=== PATIENT | female | born 1940 | race Caucasian/White ===

== ENCOUNTER 2018-02-11 07:54 | Inpatient (IN) | payer MEDICARE ==
[~2018-02-11] VITALS: Ht 175.3 cm; Wt 80.7 kg
[~2018-02-11 07:54] MED LIST: ATOR10 PO; CALTTAB2 PO; CLOP75 PO; ECOT81TA2 PO; EPIP0.3I IM; GEMF600T PO; GLUCTAB PO; IRON325T; LEVA250T PO; LEVO100T60 PO; LISI10 PO; NIFE1TAB86 PO; OMEP20CA5 PO; STOO100T; VITA100018 OR; WOMETAB2 OR
[2018-02-11 08:07] VITALS: BP 139/61; PULSE 80; RESP 20; TEMP 97.3; O2SAT 96
[2018-02-11] MEDS ORDERED: LISI10TA3 PO (08:38)
[2018-02-11] MEDS ORDERED: OMEP20TA93 PO (08:38)
[2018-02-11] MEDS ORDERED: LEVO100T5 PO (08:38)
[2018-02-11] MEDS ORDERED: BIOT10TA PO (08:38)
[2018-02-11] MEDS ORDERED: MULT-65 PO (08:38)
[2018-02-11] MEDS ORDERED: NIFE60TA58 PO (08:38)
[2018-02-11] MEDS ORDERED: GEMF600T PO (08:38)
[2018-02-11] MEDS ORDERED: METF1000 PO (08:38)
[2018-02-11] MEDS ORDERED: EMPA1TAB PO (08:38)
[2018-02-11] MEDS ORDERED: CALCTAB19 PO (08:38)
[2018-02-11] MEDS ORDERED: COQ-100C5 PO (08:38)
[2018-02-11] MEDS ORDERED: PLAV75TA29 PO (08:38)
[2018-02-11] MEDS ORDERED: VITA1000 PO (08:38)
[2018-02-11] MEDS ORDERED: ACETAMINOPHEN 500 MG CPLT PO ONE (08:45)
--- NOTE | 2018-02-11 09:24 | PD ---
HPI Chief Complaint: Fall Time Seen by Provider: 08:27 Travel History International Travel<30 days: No Contact w/Intl Traveler<30days: No Traveled to known affect area: No History of Present Illness HPI This 77-year-old woman presents to the emergency department complaining of pain in her left foot in both knees after a fall. She reports that she was making a large step up from part of her house to another when she got tangled up on her feet and fell. She fell on her knees and her feet. Complains of pain in her lower extremity's only. Did not hit her head. Otherwise had been feeling generally well and healthy. Denies syncope or other symptoms. Patient able to bear weight but with some difficulty. History Past Medical History Narrative Medical Hypothyroidism Fuchs corneal dystrophy Hypertension Dyslipidemia Diabetes History of breast CA Chronic back pain Osteoporosis Tetanus Vaccination: > 5 Years Influenza Vaccination: Yes Menopausal: Yes Social History Alcohol Use: No Tobacco Use: No Allergies-Medications (Allergen,Severity, Reaction): Coded Allergies: Iodinated Contrast- Oral and IV Dye (Verified Allergy, Severe, RASH/ SWELLING, 02/11/18) Sulfa (Sulfonamide Antibiotics) (Verified Allergy, Severe, SORES IN MOUTH , 02/11/18) bee venom protein (honey bee) (Verified Allergy, Severe, Anaphylaxis, 02/11) codeine (Verified Allergy, Severe, CHEST PAIN/MOUTH TINGLING, 02/11/18) Uncoded Allergies: FLEA BITES (Adverse Reaction, Intermediate, CELLLITITS, 02/11/18) SPIDER BITES (Adverse Reaction, Intermediate, CELLULITIS, 02/11/18) SURGICAL TAPE (Adverse Reaction, Intermediate, BLISTERS, 02/11/18) Reported Meds & Prescriptions Reported Meds & Active Scripts Active Reported Biotin 10 Mg Tab 10 Mg PO DAILY Coq-10 Tr (Coenzyme Q10 (Ubidecarenone)) 100 Mg Cap 100 Mg PO DAILY Multi-Vitamin Daily (Multiple Vitamin) 1 Tab Tab 1 Tab PO DAILY Jardiance (Empagliflozin) 10 Mg Tab 10 Mg PO DAILY Gemfibrozil 600 Mg Tab 600 Mg PO BIDAC Take 30 minutes prior to breakfast and dinner. Omeprazole 20 Mg Tab 20 Mg PO DAILY Calcium 600+D 200 (Calcium Carbonate-Vitamin D) 600-200 Mg-Unit Tab 1 Tab PO BID Vitamin D-1000 (Cholecalciferol) 1,000 Unit Tab 1,000 Units PO DAILY Levothyroxine (Levothyroxine Sodium) 100 Mcg Tab 100 Mcg PO DAILY Plavix (Clopidogrel Bisulfate) 75 Mg Tab 75 Mg PO DAILY Lisinopril 10 Mg Tab 10 Mg PO DAILY Nifedipine ER 24 HR (Nifedipine) 60 Mg Tab 60 Mg PO BID Metformin (Metformin HCl) 1,000 Mg Tab 1,000 Mg PO BIDPC Review of Systems Except as stated in HPI: all other systems reviewed are Neg Physical Exam Narrative GENERAL: Well-appearing 77-year-old woman, no acute distress. SKIN: Focused skin assessment warm/dry. HEAD: Atraumatic. Normocephalic. EYES: Pupils equal and round. No scleral icterus. No injection or drainage. ENT: No nasal bleeding or discharge. Mucous membranes pink and moist. NECK: Trachea midline. No JVD. CARDIOVASCULAR: Regular rate and rhythm. No murmur appreciated. RESPIRATORY: No accessory muscle use. Clear to auscultation. Breath sounds equal bilaterally. GASTROINTESTINAL: Abdomen soft, non-tender, nondistended. Hepatic and splenic margins not palpable. MUSCULOSKELETAL: No obvious deformity. No significant ecchymosis or bruising. A little bit of ecchymosis on the anterior left knee. Is a little bit of swelling on the left foot medially. There is no tenderness about the left medial lateral malleolus or in the ankle. No pain on the left calf. Examination of the left knee reveals no obvious effusion. There is some tenderness anteriorly on the knee. Full range of motion. Examination of the right knee reveals no external signs of injury. Minimal tenderness diffusely. Full range of motion. NEUROLOGICAL: Awake and alert. No obvious cranial nerve deficits. Motor grossly within normal limits. Normal speech. PSYCHIATRIC: Appropriate mood and affect; insight and judgment normal. Data Data Last Documented VS Vital Signs Date Time Temp Pulse Resp B/P (MAP) Pulse Ox O2 Delivery O2 Flow Rate FiO2 02/11/18 10:05 93 Nasal Cannula 2.00 02/11/18 10:04 73 18 133/60 (84) 02/11/18 08:07 97.3 Orders Orders Acetaminophen (Tylenol) (02/11/18 08:45) Knee, Complete (4vws) (02/11/18 ) Foot, Complete ([id number]) (02/11/18 ) Knee, Complete (4vws) (02/11/18 ) Complete Blood Count With Diff (02/11/18 12:31) Basic Metabolic Panel (Bmp) (02/11/18 12:31) Admit Order (Ed Use Only) (02/11/18 ) [facility] Medical Decision Making Medical Screen Exam Complete: Yes Emergency Medical Condition: Yes Interpretation(s) Left foot x-ray: Fracture the base of the first metatarsal Bilateral knee x-rays: Negative for fracture Differential Diagnosis Knee x-ray fracture, contusion, strain or sprain, other Narrative Course Medical decision making 77-year-old woman presents emergency department complaint pain in her left foot , both knees, after fall. Looks well. Will check imaging. Possible foot fracture. Doubt knee injury. Physician Communication Physician Communication Spoke with Dr. Rodriguez, will likely need to pin the foot. Recommends admission. Spoke with Dr. Romero, will admit patient. Diagnosis Primary Impression: Metatarsal fracture Admitting Information Admitting Physician Requests: Admit Jared Connelly MD February 11, 2018 09:24
--- NOTE | 2018-02-11 09:35 | RADRPT ---
EXAM DATE: 02/11/2018 9:31 AM EDT AGE/SEX: 77 years / Female INDICATIONS: Right knee pain on medial and lateral side after fall. CLINICAL DATA: This is the patient's initial encounter. Patient reports that signs and symptoms have been present for 1 day and indicates a pain score of 5/10. MEDICAL/SURGICAL HISTORY: None. None. COMPARISON: No prior [place] exams available for comparison. FINDINGS: Bony structures are intact and in normal alignment. No fracture or effusion. There is osteopenia. Mil d osteoarthritis. Soft tissues are unremarkable. No radiopaque foreign bodies seen. CONCLUSION: Mild osteoarthritis without fracture. Electronically signed by: Diego Steel MD 02/11/2018 9:33 AM EDT
--- NOTE | 2018-02-11 09:39 | RADRPT ---
EXAM DATE: 02/11/2018 9:34 AM EDT AGE/SEX: 77 years / Female INDICATIONS: Left foot pain on medial side after fall. CLINICAL DATA: This is the patient's initial encounter. Patient reports that signs and symptoms have been present for 1 day and indicates a pain score of 10/10. MEDICAL/SURGICAL HISTORY: None. None. COMPARISON: No prior [place] exams available for comparison. FINDINGS: Views left foot are obtained. There is a minimally displaced fracture through the base of the first m etatarsal was extended to the proximal shaft. There are mild scattered degenerative changes. There is osteopenia. Large plantar calcaneal spur.. Soft tissues are unremarkable. No radiopaque foreign jonathan dies seen. CONCLUSION: Fracture at the base of the first metatarsal. Electronically signed by: Diego Steel MD 02/11/2018 9:38 AM EDT
[2018-02-11 10:04] VITALS: BP 133/60; PULSE 73; RESP 18; O2SAT 88
[2018-02-11 10:05] VITALS: O2SAT 93
--- NOTE | 2018-02-11 10:30 | RADRPT ---
EXAM DATE: 02/11/2018 9:33 AM EDT AGE/SEX: 77 years / Female INDICATIONS: Left knee pain on medial and lateral side after fall. CLINICAL DATA: This is the patient's initial encounter. Patient reports that signs and symptoms have been present for 1 day and indicates a pain score of 10/10. MEDICAL/SURGICAL HISTORY: None. None. COMPARISON: No prior [place] exams available for comparison. FINDINGS: 4 views of the left knee demonstrate no fracture or dislocation. Mineralization appears mildly decrea sed. No joint effusion is visualized. A fabella is present. Small osteophytes are present on the tibi al spines but otherwise no significant arthropathy is present. No soft tissue abnormality or radiopaq ue foreign body is identified. CONCLUSION: No acute left knee abnormality is identified. Electronically signed by: Ethan Brown MD 02/11/2018 10:29 AM EDT
[2018-02-11] MEDS ORDERED: SODIUM CHLOR 0.9% 1000 ML INJ 1,000 ML IV SCH (13:09)
[2018-02-11] MEDS ORDERED: NALOXONE HCL 0.4 MG/ML AMP IV PUSH PRN (13:15)
[2018-02-11] MEDS ORDERED: MAGNESIUM HYDROXIDE SUSP 30 ML CUP PO PRN (13:15)
[2018-02-11] MEDS ORDERED: SODIUM CHLORIDE 0.9% FLUSH 10 ML FLUSH IV FLUSH PRN (13:15)
[2018-02-11] MEDS ORDERED: MORPHINE SULFATE 4 MG/ML INJ IV PUSH PRN (13:15)
[2018-02-11] MEDS ORDERED: BISACODYL 10 MG SUPP RECTAL PRN (13:15)
[2018-02-11 13:18] LABS: AUTOMATED NEUTROPHIL # 5.5 TH/MM3 (1.8-7.7); BASOPHIL # 0.1 TH/MM3 (0-0.2); BASOPHIL % 0.7 % (0.0-2.0); EOSINOPHIL # 0.2 TH/MM3 (0-0.4); HEMATOCRIT 42.4 % (35.0-46.0); LYMPHOCYTE # 1.3 TH/MM3 (1.0-4.8); MEAN CELL VOLUME 82.4 FL (80.0-100.0); MEAN CORPUSCULAR HEMOGLOBIN 27.1 PG (27.0-34.0); MEAN CORPUSCULAR HGB CONC 32.9 % (32.0-36.0); NEUT % 68.3 % (16.0-70.0); PLATELET COUNT 212 TH/MM3 (150-450); RED BLOOD COUNT 5.15 MIL/MM3 (4.00-5.30); WHITE BLOOD COUNT 8.1 TH/MM3 (4.0-11.0)
--- NOTE | 2018-02-11 13:18 | HHI.HP ---
HPI Service [facility] Hospitalists Primary Care Physician Marcel Barrientos MD Admission Diagnosis Metatarsal fracture Chief Complaint: fall, foot pain Travel History International Travel<30 Days: No Contact w/Intl Traveler <30 Da: No Traveled to Known Affected Are: No History of Present Illness This is 77 rolled female patient with past medical history which includes ductal carcinoma of the breast, arthritis, thyroid cancer, basal cell carcinoma of the skin from the nose, hypertension, dyslipidemia, diabetes mellitus, chronic back pain, osteoporosis, hypothyroidism,Fuchs corneal dystrophy. Patient presents emergency department today with complains of pain in her left foot in both knees after a fall. She reports that she was making a large step up from part of her house to another when she got tangled up on her feet and fell. She fell on her knees and her feet. Complains of pain in her lower extremity's only. Denies head trauma cannot, loss of consciousness, syncope, chest pain, shortness of breath, fevers, chills, nausea, vomiting. Review of Systems Constitutional: DENIES: Fatigue, Fever, Chills Eyes: DENIES: Blurred vision, Diplopia, Vision loss Respiratory: DENIES: Cough, Sputum production, Shortness of breath Cardiovascular: DENIES: Chest pain, Palpitations, Dyspnea on Exertion Gastrointestinal: DENIES: Abdominal pain, Constipation, Diarrhea, Nausea, Vomiting Musculoskeletal: COMPLAINS OF: Joint pain (left foot), Joint Swelling (left foot) Neurologic: DENIES: Headache, Localized weakness, Speech Problems Psychiatric: DENIES: Anxiety, Confusion, Depression Past Family Social History Past Medical History Arthritis Thyroid cancer BCC skin cancer from nose Right breast cancer Hypertension Dyslipidemia Diabetes Chronic back pain Osteoporosis Hypothyroidism Fuchs corneal dystrophy GERD Past Surgical History Bilateral Inguinal herniorrhaphy Appendectomy Total hysterectomy Bilateral cataract surgery Thyroidectomy Right breast lumpectomy BCC removal from nose Pilonidal cyst removal Left knee surgery right hip surgery Reported Medications Biotin 10 Mg Tab 10 Mg PO DAILY Coq-10 Tr (Coenzyme Q10 (Ubidecarenone)) 100 Mg Cap 100 Mg PO DAILY Multi-Vitamin Daily (Multiple Vitamin) 1 Tab Tab 1 Tab PO DAILY Jardiance (Empagliflozin) 10 Mg Tab 10 Mg PO DAILY Gemfibrozil 600 Mg Tab 300 Mg PO DAILY Take 30 minutes prior to breakfast and dinner. Omeprazole 20 Mg Tab 20 Mg PO DAILY Calcium 600+D 200 (Calcium Carbonate-Vitamin D) 600-200 Mg-Unit Tab 1 Tab PO BID Vitamin D-1000 (Cholecalciferol) 1,000 Unit Tab 1,000 Units PO DAILY Levothyroxine (Levothyroxine Sodium) 100 Mcg Tab 100 Mcg PO DAILY Plavix (Clopidogrel Bisulfate) 75 Mg Tab 75 Mg PO DAILY Lisinopril 10 Mg Tab 10 Mg PO DAILY Nifedipine ER 24 HR (Nifedipine) 60 Mg Tab 60 Mg PO BID Metformin (Metformin HCl) 1,000 Mg Tab 1,000 Mg PO BIDPC Allergies: Coded Allergies: Iodinated Contrast- Oral and IV Dye (Verified Allergy, Severe, RASH/ SWELLING, 02/11/18) Sulfa (Sulfonamide Antibiotics) (Verified Allergy, Severe, SORES IN MOUTH , 02/11/18) bee venom protein (honey bee) (Verified Allergy, Severe, Anaphylaxis, 02/11) codeine (Verified Allergy, Severe, CHEST PAIN/MOUTH TINGLING, 02/11/18) Uncoded Allergies: FLEA BITES (Adverse Reaction, Intermediate, CELLLITITS, 02/11/18) SPIDER BITES (Adverse Reaction, Intermediate, CELLULITIS, 02/11/18) SURGICAL TAPE (Adverse Reaction, Intermediate, BLISTERS, 02/11/18) Family History Noncontributory Social History Hx of tobacco use, smoked 1ppf x 20 years, quit 25+ years ago Denies any alcohol or illicit drug use Physical Exam Vital Signs Vital Signs Date Time Temp Pulse Resp B/P (MAP) Pulse Ox O2 Delivery O2 Flow Rate FiO2 02/11/18 10:05 93 Nasal Cannula 2.00 02/11/18 10:04 73 18 133/60 (84) 88 Room Air 02/11/18 08:26 77 18 95 Room Air 02/11/18 08:07 97.3 80 20 139/61 (87) 96 Physical Exam GENERAL: This is a well-nourished, well-developed patient, in no apparent distress. SKIN: edema and ecchymosis started on the left foot HEAD: Atraumatic. Normocephalic. No temporal or scalp tenderness. EYES: Extraocular motions intact. No scleral icterus. No injection or drainage. CARDIOVASCULAR: Regular rate and rhythm RESPIRATORY: Clear to auscultation. Breath sounds equal bilaterally. GASTROINTESTINAL: Abdomen soft, non-tender, nondistended. No hepato-splenomegaly , or palpable masses. No guarding. MUSCULOSKELETAL: Extremities without clubbing, cyanosis, or edema. No joint tenderness, effusion, or edema noted. No calf tenderness. Negative Homans sign bilaterally. NEUROLOGICAL: Awake and alert. No focal deficits noted. Motor and sensory grossly within normal limits. Five out of 5 muscle strength in all muscle groups. Normal speech. Laboratory Laboratory Tests Test 02/11/18 12:54 Imaging Last Impressions Knee X-Ray 02/11/18 0000 Signed Impressions: CONCLUSION: Mild osteoarthritis without fracture. Foot X-Ray 02/11/18 0000 Signed Impressions: CONCLUSION: Fracture at the base of the first metatarsal. Caprini VTE Risk Assessment Caprini VTE Risk Assessment: Mod/High Risk (score >= 2) Caprini Risk Assessment Model Point Value = 1 Point Value = 2 Point Value = 3 Point Value = 5 Age 41-60 Minor surgery BMI > 25 kg/m2 Swollen legs Varicose veins or History of unexplained or recurrent spontaneous Oral contraceptives or hormone replacement Sepsis (< 1 month) Serious lung disease, including pneumonia (< 1 month) Abnormal pulmonary function Acute myocardial infarction Congestive heart failure (< 1 month) History of inflammatory bowel disease Medical patient at bed rest Age 61-74 Arthroscopic surgery Major open surgery (> 45 min) Laparoscopic surgery (> 45 min) Malignancy Confined to bed (> 72 hours) Immobilizing plaster cast Central venous access Age >= 75 History of VTE Family history of VTE Factor V Leiden Prothrombin [id number] Lupus anticoagulant Anticardiolipin antibodies Elevated serum homocysteine Heparin-induced thrombocytopenia Other congenital or acquired thrombophilia Stroke (< 1 month) Elective arthroplasty Hip, pelvis, or leg fracture Acute spinal cord injury (< 1 month) Prophylaxis Regimen Total Risk Factor Score Risk Level Prophylaxis Regimen 0-1 Low Early ambulation 2 Moderate Order ONE of the following: *Sequential Compression Device (SCD) *Heparin 5000 units SQ BID 3-4 Higher Order ONE of the following medications: *Heparin 5000 units SQ TID *Enoxaparin/Lovenox 40 mg SQ daily (WT < 150 kg, CrCl > 30 mL/min) *Enoxaparin/Lovenox 30 mg SQ daily (WT < 150 kg, CrCl > 10-29 mL/min) *Enoxaparin/Lovenox 30 mg SQ BID (WT < 150 kg, CrCl > 30 mL/min) AND/OR *Sequential Compression Device (SCD) 5 or more Highest Order ONE of the following medications: *Heparin 5000 units SQ TID (Preferred with Epidurals) *Enoxaparin/Lovenox 40 mg SQ daily (WT < 150 kg, CrCl > 30 mL/min) *Enoxaparin/Lovenox 30 mg SQ daily (WT < 150 kg, CrCl > 10-29 mL/min) *Enoxaparin/Lovenox 30 mg SQ BID (WT < 150 kg, CrCl > 30 mL/min) AND *Sequential Compression Device (SCD) Assessment and Plan Problem List: (1) Fractured metatarsal bone ICD Codes: S92.309A - Fracture of unspecified metatarsal bone(s), unspecified foot, initial encounter for closed fracture Plan: Fractured metatarsal bone mechanical fall X ray left foot reveals: Fracture at the base of the first metatarsal Patient known to Dr. Rodriguez Podiatry consulted, recommending plan for OR for ORIF left 1st metatarsal non weight bearing left lower extremity CVA Continue patient's home Plavix in AM DM Hold metformin while in hospital Accu checks ACHS with SSI coverage HTN Continue patient's home Nifedipine 60 mg PO BID, Losartan 25 mg PO daily Hypothyroidism Continue patient's home Levothyroxine 100 mcg daily Hyperlipidemia Continue patient's home Gemfibrozil 300 mg PO daily DVT prophylaxis with SCDs (2) CVA (cerebral vascular accident) ICD Codes: I63.9 - CVA (cerebral vascular accident) Status: Acute (3) DM (diabetes mellitus) ICD Codes: E11.9 - DM (diabetes mellitus) Status: Acute (4) HTN (hypertension), benign ICD Codes: I10 - HTN (hypertension), benign Status: Acute (5) HLD (hyperlipidemia) ICD Codes: E78.5 - HLD (hyperlipidemia) Status: Acute Isela Lei February 11, 2018 13:18
[2018-02-11 13:28] LABS: BICARBONATE 25.3 MEQ/L (21.0-32.0); CALCIUM 8.6 MG/DL (8.5-10.1); CREATININE 0.7 MG/DL (0.50-1.00)
--- NOTE | 2018-02-11 14:47 | PD.CONS ---
History of Present Illness Service Podiatry Consult Requested By Reason for Consult Left 1st metatarsal fracture Primary Care Physician Marcel Barrientos MD Diagnoses: History of Present Illness Patient sees me in office regularly. She presents emergency department today with complains of pain in her left foot after a fall. She reports that she was making a large step up from part of her house to another when she got tangled up on her feet and fell. She fell on her knees and her feet. Complains of pain in her lower extremities only with no loss of consciousness. Appears to be isolated In my office, she reported her last A1c 4 months ago as 6.3 Past Family Social History Allergies: Coded Allergies: Iodinated Contrast- Oral and IV Dye (Verified Allergy, Severe, RASH/ SWELLING, 02/11/18) Sulfa (Sulfonamide Antibiotics) (Verified Allergy, Severe, SORES IN MOUTH , 02/11/18) bee venom protein (honey bee) (Verified Allergy, Severe, Anaphylaxis, 02/11) codeine (Verified Allergy, Severe, CHEST PAIN/MOUTH TINGLING, 02/11/18) Uncoded Allergies: FLEA BITES (Adverse Reaction, Intermediate, CELLLITITS, 02/11/18) SPIDER BITES (Adverse Reaction, Intermediate, CELLULITIS, 02/11/18) SURGICAL TAPE (Adverse Reaction, Intermediate, BLISTERS, 02/11/18) Past Medical History Arthritis Thyroid cancer BCC skin cancer from nose Right breast cancer Hypertension Dyslipidemia Diabetes Chronic back pain Osteoporosis Hypothyroidism Fuchs corneal dystrophy Past Surgical History Bilateral Inguinal herniorrhaphy Appendectomy Total hysterectomy Bilateral cataract surgery Thyroidectomy Right breast lumpectomy BCC removal from nose Pilonidal cyst removal Active Ordered Medications Current Medications Medications (Trade) Dose Ordered Sig/Rocio Route Start Time Stop Time Status Last Admin Sodium Chloride 1,000 ml @ 75 mls/hr [id number] IV 02/11/18 13:09 02/12/18 02:28 02/11/18 13:40 (NS Flush) 2 ml UNSCH PRN IV FLUSH 02/11/18 13:15 (NS Flush) 2 ml BID IV FLUSH 02/11/18 21:00 (Tylenol) 650 mg Q4H PRN PO 02/11/18 13:15 (Narcan Inj) 0.4 mg UNSCH PRN IV PUSH 02/11/18 13:15 (Delisa-Colace) 1 tab BID PO 02/11/18 21:00 (Milk Of Magnesia Liq) 30 ml Q12H PRN PO 02/11/18 13:15 (Dulcolax Supp) 10 mg DAILY PRN RECTAL 02/11/18 13:15 (Morphine Inj) 2 mg Q4HR PRN IV PUSH 02/11/18 13:15 (Plavix) 75 mg DAILY PO 02/12/18 09:00 (Synthroid) 100 mcg DAILY@0600 PO 02/12/18 06:00 (Prinivil) 10 mg DAILY PO 02/12/18 09:00 (Procardia Xl) 60 mg BID PO 02/11/18 21:00 (Jean 5-325 Mg) 1 tab Q4H PRN PO 02/11/18 14:30 (Oscal-D 250-125) 500 mg BID PO 02/12/18 09:00 (Protonix) 20 mg DAILY PO 02/12/18 09:00 Family History Noncontributory Pt has three children Social History Hx of tobacco use, smoked 1ppf x 20 years, quit 25+ years ago Denies any alcohol or illicit drug use Physical Exam Vital Signs Vital Signs Date Time Temp Pulse Resp B/P (MAP) Pulse Ox O2 Delivery O2 Flow Rate FiO2 02/11/18 10:05 93 Nasal Cannula 2.00 02/11/18 10:04 73 18 133/60 (84) 88 Room Air 02/11/18 08:26 77 18 95 Room Air 02/11/18 08:07 97.3 80 20 139/61 (87) 96 Physical Exam Left foot with mild edema. Pain medially. Neurovascularly intact. Laboratory Laboratory Tests Test 02/11/18 12:54 White Blood Count 8.1 Red Blood Count 5.15 Hemoglobin 14.0 Hematocrit 42.4 Mean Corpuscular Volume 82.4 Mean Corpuscular Hemoglobin 27.1 Mean Corpuscular Hemoglobin Concent 32.9 Red Cell Distribution Width 15.0 Platelet Count 212 Mean Platelet Volume 9.0 Neutrophils (%) (Auto) 68.3 Lymphocytes (%) (Auto) 16.0 Monocytes (%) (Auto) 12.0 Eosinophils (%) (Auto) 3.0 Basophils (%) (Auto) 0.7 Neutrophils # (Auto) 5.5 Lymphocytes # (Auto) 1.3 Monocytes # (Auto) 1.0 Eosinophils # (Auto) 0.2 Basophils # (Auto) 0.1 CBC Comment DIFF FINAL Differential Comment Blood Urea Nitrogen 13 Creatinine 0.70 Random Glucose 130 Calcium Level 8.6 Sodium Level 142 Potassium Level 3.7 Chloride Level 108 Carbon Dioxide Level 25.3 Anion Gap 9 Estimat Glomerular Filtration Rate 81 Result Diagram: 02/11/18 1254 02/11/18 1254 Imaging Last 72 hours Impressions Knee X-Ray 02/11/18 0000 Signed Impressions: CONCLUSION: Mild osteoarthritis without fracture. Knee X-Ray 02/11/18 0000 Signed Impressions: CONCLUSION: No acute left knee abnormality is identified. Foot X-Ray 02/11/18 0000 Signed Impressions: CONCLUSION: Fracture at the base of the first metatarsal. Assessment and Plan Assessment and Plan Left first metatarsal fracture To OR for ORIF left 1st metatarsal nonweightbearing left lower extremity NPO Tono Rodriguez DPM February 11, 2018 14:47
[2018-02-11] MEDS ORDERED: LOSA25TA PO (15:27)
[2018-02-11 16:00] VITALS: BP 139/71; PULSE 73; RESP 18; TEMP 97.8; O2SAT 94
[2018-02-11 19:05] VITALS: BP 163/71; PULSE 71; RESP 18; TEMP 98; O2SAT 98
[2018-02-11] MEDS ORDERED: SODIUM CHLORID 0.9% 500 ML IV PRN (20:00)
[2018-02-11] MEDS ORDERED: METOPROLOL TARTRATE 25 MG TAB PO PRN (20:00)
[2018-02-11] MEDS ORDERED: POVIDONE IODINE 5% (ANTISEPSIS KIT) 4 APPLICATIONS EACH NARE PRN (20:00)
[2018-02-11] MEDS ORDERED: LACTATED RINGER'S 1000 ML IV PRN (20:00)
[2018-02-11] MEDS ORDERED: INSULIN HUMAN REGULAR 1,000 UNITS/10 ML VIAL SQ PRN (20:00)
[2018-02-11] MEDS ORDERED: CHLORHEXIDINE GLUCONATE 2 % 1 PACK (2 CLOTHS) TOPICAL PRN (20:00)
[2018-02-11] MEDS ORDERED: NON-FORMULARY DRUG (Calcium Carbonate-Vitamin D (Calcium 600+D 200) 1 TAB) PO SCH (21:00)
[2018-02-11] MEDS ORDERED: fentaNYL CITRATE 250 MCG/5 ML AMP ONE (21:02)
[2018-02-11] MEDS ORDERED: ACETAMINOPHEN 1000 MG/100 ML 0 ML IV ONE (21:02)
[2018-02-11] MEDS: DOCUSATE SODIUM 50 MG/SENNA 8.6 MG TAB PO SCH (21:04)
[2018-02-11] MEDS: SODIUM CHLORIDE 0.9% FLUSH 10 ML FLUSH IV FLUSH SCH (21:04)
[2018-02-11] MEDS: NIFEdipine 60 MG SUSTAINED RELEASE TAB PO SCH (21:05)
--- NOTE | 2018-02-11 21:43 | PD.POD ---
Past Med/Surg/Social History Past Medical History Endocrine: REPORTS HX OF: Diabetes mellitus (type 2), Hypothyroidism Cardiovascular: REPORTS HX OF: Hyperlipidemia, Hypertension Past Surgical History HEENT: REPORTS HX OF: Cataract extraction (bilateral) Endocrine: REPORTS HX OF: Thyroid surgery Gastrointestinal: REPORTS HX OF: Appendectomy, Hernia repair (2) Gynecologic: REPORTS HX OF: Hysterectomy Musculoskeletal: REPORTS HX OF: Joint replacement, Other musculoskeletal srg ( left foot, left knee, ) Neurologic: REPORTS HX OF: Spinal surgery Breast: REPORTS HX OF: Lumpectomy (right ) Social History Smoking Status: Former Smoker Objective Vital Signs Vital Signs Date Time Temp Pulse Resp B/P (MAP) Pulse Ox O2 Delivery O2 Flow Rate FiO2 02/11/18 19:05 98.0 71 18 163/71 (101) 98 02/11/18 16:00 97.8 73 18 139/71 (93) 94 02/11/18 14:55 02/11/18 10:05 93 Nasal Cannula 2.00 02/11/18 10:04 73 18 133/60 (84) 88 Room Air 02/11/18 08:26 77 18 95 Room Air 02/11/18 08:07 97.3 80 20 139/61 (87) 96 Coded Allergies: Iodinated Contrast- Oral and IV Dye (Verified Allergy, Severe, RASH/ SWELLING, 02/11/18) Sulfa (Sulfonamide Antibiotics) (Verified Allergy, Severe, SORES IN MOUTH , 02/11/18) bee venom protein (honey bee) (Verified Allergy, Severe, Anaphylaxis, 02/11) codeine (Verified Allergy, Severe, CHEST PAIN/MOUTH TINGLING, 02/11/18) Uncoded Allergies: FLEA BITES (Adverse Reaction, Intermediate, CELLLITITS, 02/11/18) SPIDER BITES (Adverse Reaction, Intermediate, CELLULITIS, 02/11/18) SURGICAL TAPE (Adverse Reaction, Intermediate, BLISTERS, 02/11/18) Other Results Last 72 hours Impressions Knee X-Ray 02/11/18 0000 Signed Impressions: CONCLUSION: Mild osteoarthritis without fracture. Knee X-Ray 02/11/18 0000 Signed Impressions: CONCLUSION: No acute left knee abnormality is identified. Foot X-Ray 02/11/18 0000 Signed Impressions: CONCLUSION: Fracture at the base of the first metatarsal. Assessment & Plan A/P Left first metatarsal fracture, displaced Emergency came through and delayed OR. Patient made NPO after 8 a.m. tomorrow for surgery at 4 pm Tono Rodriguez DPM February 11, 2018 21:43
[2018-02-11] MEDS: ACETAMINOPHEN 325 MG TAB PO PRN (22:54)
[2018-02-11 22:57] VITALS: BP 148/66; PULSE 72; RESP 17; TEMP 98; O2SAT 93
[2018-02-12 03:16] VITALS: BP 142/66; PULSE 73; RESP 17; TEMP 97.9; O2SAT 93
[2018-02-12] MEDS: LEVOTHYROXINE SODIUM 100 MCG TAB PO SCH (05:45)
[2018-02-12] MEDS: ACETAMINOPHEN/HYDROcodone 325 MG/5 MG TAB PO PRN ×2 (06:41→20:54)
[2018-02-12 08:00] VITALS: BP 149/65; PULSE 71; RESP 16; TEMP 97.5; O2SAT 94
[2018-02-12 08:08] LABS: AUTOMATED NEUTROPHIL # 4.3 TH/MM3 (1.8-7.7); BASOPHIL # 0.1 TH/MM3 (0-0.2); EOSINOPHIL # 0.3 TH/MM3 (0-0.4); EOSINOPHIL % 4.8 % (0.0-4.0); HEMATOCRIT 44.8 % (35.0-46.0); HEMOGLOBIN 14.7 GM/DL (11.6-15.3); LYMPH % 20.8 % (9.0-44.0); LYMPHOCYTE # 1.5 TH/MM3 (1.0-4.8); MEAN CELL VOLUME 83.2 FL (80.0-100.0); MEAN CORPUSCULAR HEMOGLOBIN 27.3 PG (27.0-34.0); MEAN CORPUSCULAR HGB CONC 32.8 % (32.0-36.0); MEAN PLATELET VOLUME 9.1 FL (7.0-11.0); MONO % 11.2 % (0.0-8.0); MONOCYTE # 0.8 TH/MM3 (0-0.9); NEUT % 62.2 % (16.0-70.0); PLATELET COUNT 204 TH/MM3 (150-450); RED BLOOD COUNT 5.38 MIL/MM3 (4.00-5.30)
[2018-02-12 08:33] LABS: BICARBONATE 25.8 MEQ/L (21.0-32.0); CALCIUM 8.6 MG/DL (8.5-10.1); CREATININE 0.53 MG/DL (0.50-1.00)
[2018-02-12] MEDS: GEMFIBROZIL 600 MG TAB PO SCH (09:00)
[2018-02-12] MEDS: PANTOPRAZOLE SOD 20 MG DELAYED RELEASE TAB PO SCH (09:00)
[2018-02-12] MEDS ORDERED: NON-FORMULARY DRUG (Omeprazole 20 MG) PO SCH (09:00)
[2018-02-12] MEDS: DOCUSATE SODIUM 50 MG/SENNA 8.6 MG TAB PO SCH ×2 (09:00→20:53)
[2018-02-12] MEDS ORDERED: LISINOPRIL 10 MG TAB PO SCH (09:00)
[2018-02-12] MEDS: LOSARTAN 25 MG TAB PO SCH (09:00)
[2018-02-12] MEDS: NIFEdipine 60 MG SUSTAINED RELEASE TAB PO SCH ×2 (09:00→20:54)
[2018-02-12] MEDS: SODIUM CHLORIDE 0.9% FLUSH 10 ML FLUSH IV FLUSH SCH ×2 (09:00→20:54)
[2018-02-12] MEDS ORDERED: CLOPIDOGREL 75 MG TAB PO SCH (09:00)
[2018-02-12] MEDS: CALCIUM/VITAMIN D 250 MG/125 U TAB PO SCH ×2 (09:00→20:54)
[2018-02-12 10:11] VITALS: O2SAT 93
--- NOTE | 2018-02-12 10:55 | HHI.PR ---
Subjective Remarks Pt without any new complaints Pain is currently controlled Pt planned for surgical intervention later this afternoon Objective Vitals Vital Signs Date Time Temp Pulse Resp B/P (MAP) Pulse Ox O2 Delivery O2 Flow Rate FiO2 02/12/18 10:11 93 Nasal Cannula 1.00 02/12/18 08:00 97.5 71 16 149/65 (93) 94 02/12/18 03:16 97.9 73 17 142/66 (91) 93 02/11/18 22:57 98.0 72 17 148/66 (93) 93 02/11/18 19:05 98.0 71 18 163/71 (101) 98 02/11/18 16:00 97.8 73 18 139/71 (93) 94 02/11/18 14:55 Result Diagram: 02/12/18 0700 02/12/18 0700 Other Results Laboratory Tests Test 02/11/18 12:54 02/12/18 07:00 White Blood Count 8.1 TH/MM3 7.0 TH/MM3 Red Blood Count 5.15 MIL/MM3 5.38 MIL/MM3 Hemoglobin 14.0 GM/DL 14.7 GM/DL Hematocrit 42.4 % 44.8 % Mean Corpuscular Volume 82.4 FL 83.2 FL Mean Corpuscular Hemoglobin 27.1 PG 27.3 PG Mean Corpuscular Hemoglobin Concent 32.9 % 32.8 % Red Cell Distribution Width 15.0 % 15.0 % Platelet Count 212 TH/MM3 204 TH/MM3 Mean Platelet Volume 9.0 FL 9.1 FL Neutrophils (%) (Auto) 68.3 % 62.2 % Lymphocytes (%) (Auto) 16.0 % 20.8 % Monocytes (%) (Auto) 12.0 % 11.2 % Eosinophils (%) (Auto) 3.0 % 4.8 % Basophils (%) (Auto) 0.7 % 1.0 % Neutrophils # (Auto) 5.5 TH/MM3 4.3 TH/MM3 Lymphocytes # (Auto) 1.3 TH/MM3 1.5 TH/MM3 Monocytes # (Auto) 1.0 TH/MM3 0.8 TH/MM3 Eosinophils # (Auto) 0.2 TH/MM3 0.3 TH/MM3 Basophils # (Auto) 0.1 TH/MM3 0.1 TH/MM3 CBC Comment DIFF FINAL DIFF FINAL Differential Comment Blood Urea Nitrogen 13 MG/DL 10 MG/DL Creatinine 0.70 MG/DL 0.53 MG/DL Random Glucose 130 MG/DL 109 MG/DL Calcium Level 8.6 MG/DL 8.6 MG/DL Sodium Level 142 MEQ/L 143 MEQ/L Potassium Level 3.7 MEQ/L 4.0 MEQ/L Chloride Level 108 MEQ/L 108 MEQ/L Carbon Dioxide Level 25.3 MEQ/L 25.8 MEQ/L Anion Gap 9 MEQ/L 9 MEQ/L Estimat Glomerular Filtration Rate 81 ML/MIN 112 ML/MIN Imaging Last Impressions Knee X-Ray 02/11/18 0000 Signed Impressions: CONCLUSION: Mild osteoarthritis without fracture. Foot X-Ray 02/11/18 0000 Signed Impressions: CONCLUSION: Fracture at the base of the first metatarsal. Objective Remarks General: NAD, AAOx3 Chest: CTA Cardiac: Regular Abd: +BS, soft ND/NT Ext: No edema, left foot very tender to light palpation A/P Problem List: (1) Fractured metatarsal bone ICD Codes: S92.309A - Fracture of unspecified metatarsal bone(s), unspecified foot, initial encounter for closed fracture Plan: Fractured metatarsal bone s/p mechanical fall - X ray left foot --> Fracture at the base of the first metatarsal - Patient known to Dr. Rodriguez - Podiatry consulted and pt planned for OR for ORIF left 1st metatarsal later today - Pt ordered to be non weight bearing left lower extremity CVA - Continue patient's home Plavix after surgical intervention today DM - Hold metformin while in hospital - Accu checks ACHS with SSI coverage HTN - Continue patient's home Nifedipine 60 mg PO BID, Losartan 25 mg PO daily - Clonidine PRN - Monitor BP closely Hypothyroidism - Cont. Levothyroxine 100 mcg daily Hyperlipidemia - Cont Gemfibrozil 300 mg PO daily DVT prophylaxis with SCDs (2) CVA (cerebral vascular accident) ICD Codes: I63.9 - CVA (cerebral vascular accident) Status: Acute (3) DM (diabetes mellitus) ICD Codes: E11.9 - DM (diabetes mellitus) Status: Acute (4) HTN (hypertension), benign ICD Codes: I10 - HTN (hypertension), benign Status: Acute (5) HLD (hyperlipidemia) ICD Codes: E78.5 - HLD (hyperlipidemia) Status: Acute Assessment and Plan Patient examined. Assessment and plan formulated with Ana Rosa Iyer PA-C. I agree with the above. await metatarsal fx pinning. d/c when ok with podiatry Ana Rosa Iyer February 12, 2018 10:55 Neil Romero MD February 12, 2018 15:00
[2018-02-12 12:00] VITALS: BP 149/65; PULSE 70; RESP 16; TEMP 97.4; O2SAT 95
[2018-02-12] MEDS ORDERED: DEXAMETHASONE SOD PHOS 4 MG/ML VIAL IV ONE (12:00)
[2018-02-12] MEDS ORDERED: ONDANSETRON HCL 4 MG/2 ML VIAL IV PUSH ONE (12:00)
[2018-02-12] MEDS ORDERED: LACTATED RINGER'S 1000 ML INJ 1,000 ML IV ONE (12:00)
[2018-02-12] MEDS ORDERED: LIDOCAINE HCL 1% PF 5 ML SYRINGE OTHER ONE (12:00)
[2018-02-12] MEDS ORDERED: ceFAZolin INJ 1,000 MG VIAL IV ONE ×2 (12:00→16:50)
[2018-02-12] MEDS ORDERED: PROPOFOL 200 MG/20 ML AMP IV ONE (12:00)
--- NOTE | 2018-02-12 14:10 | EKG ---
Date Performed: 02/11/2018 Time Performed: 18:57:09 PTAGE: 77 years EKG: Sinus rhythm LOW QRS VOLTAGE IN PRECORDIAL LEADS BORDERLINE ECG PREVIOUS TRACING : 06/13/2015 21.06 DOCTOR: Jared Loyola Interpretating Date/Time 02/12/2018 14:08:19
[2018-02-12] MEDS ORDERED: BUPIVACAINE HCL PF 0.5% 30 ML VIAL ONE (16:37)
[2018-02-12 17:30] VITALS: O2SAT 95
--- NOTE | 2018-02-12 18:09 | HHI.PR ---
Immediate Post Op Note Procedure Date: February 12, 2018 Pre Op Diagnosis: Left first metatarsal fracture Post Op Diagnosis: same Surgeon: Tono Rodriguez DPM Painter Drum(s): Staff Procedure: ORIF left 1st metatarsal fracture Findings: Consistent with diagnosis. Dorsal to plantar medial wedge split at 1st met- cuneiform joint, intraarticular, displaced. Fracture located, reduced, and fixated with small locking plate/screw fixation ( [employer]) C-arm utilized to confirm reduction and adequate fixation. Closure with 3-0 vicryl and 2-0 nylon, followed by xeroform, 4x4, abd, cast padding, posterior splint, mami left lower extremity. Nonweightbearing left lower extremity with crutches vs walker vs wheelchair per PT recommendations. Follow up in clinic 1 week. Leave bandage as it and keep clean, dry, intact. Additional Information: 2g ancef IV preop Complications: None Specimen(s) removed: none Estimated blood loss: minimal Anesthesia: General, Local (10mL 0.5% marcaine plain) Drains: None IVF Tourniquet time (min at mmHg) Left calf @250mmHg Patient to: PACU Patient Condition: Good Implant/Devices: SEE IMPLANT LOG (if applicable) Date/Time of Procedure: SEE SURGICAL CARE RECORD Tono Rodriguez DPM February 12, 2018 18:09
--- NOTE | 2018-02-12 18:16 | RADRPT ---
EXAM DATE: 02/12/2018 6:14 PM EDT AGE/SEX: 77 years / Female INDICATIONS: Fracture- ORIF of left foot. CLINICAL DATA: This is the patient's subsequent encounter. Patient reports that signs and symptoms h ave been present for 1 day and indicates a pain score of Nonresponsive. MEDICAL/SURGICAL HISTORY: Non-responsive. Non-responsive. COMPARISON: No prior [facility] exams available for comparison. FINDINGS: Status post internal fixation involving the first metatarsal. There is good alignment and position of the bony structures. There is good alignment of the hardware. CONCLUSION: Good position and alignment on this postoperative study. Electronically signed by: Edson Morales MD 02/12/2018 6:15 PM EDT
[2018-02-12] MEDS ORDERED: DO NOT ADM ANY ANTICOAGULANT DRUGS PRN (18:45)
--- NOTE | 2018-02-12 18:53 | RADRPT ---
EXAM DATE: 02/12/2018 6:37 PM EDT AGE/SEX: 77 years / Female INDICATIONS: Post op left foot. CLINICAL DATA: This is the patient's initial encounter. Patient reports that signs and symptoms have been present for 1 day and indicates a pain score of Nonresponsive. MEDICAL/SURGICAL HISTORY: None. None. COMPARISON: [facility] – [place], FOOT LEFT COMPLETE ([id number]), 02/11/2018. . FINDINGS: Interval plate and screw fixation of comminuted first metatarsal fracture. Hardware appears intact an d well-positioned. There is near-anatomic alignment of the fracture fragments. Remaining osseous stru ctures appear intact. CONCLUSION: 1. Interval plate and screw fixation of comminuted first metatarsal fracture. Well-positioned hardwa re with near anatomic alignment of the fracture fragments. Electronically signed by: Elder Carvalho MD 02/12/2018 6:52 PM EDT
[2018-02-12 20:00] VITALS: BP 138/63; PULSE 69; RESP 17; TEMP 98.4; O2SAT 93
[2018-02-13] VITALS (7 sets, daily range): BP systolic 130–160; BP diastolic 62–70; PULSE 72–87; RESP 18; TEMP 97–98.1; O2SAT 92–95
[2018-02-13] MEDS: ACETAMINOPHEN/HYDROcodone 325 MG/5 MG TAB PO PRN (01:31)
[2018-02-13] MEDS: LEVOTHYROXINE SODIUM 100 MCG TAB PO SCH (06:01)
[2018-02-13] MEDS: ACETAMINOPHEN 325 MG TAB PO PRN ×3 (06:03→17:39)
[2018-02-13] MEDS: SODIUM CHLORIDE 0.9% FLUSH 10 ML FLUSH IV FLUSH SCH (09:00)
[2018-02-13] MEDS: GEMFIBROZIL 600 MG TAB PO SCH (09:00)
[2018-02-13] MEDS: LOSARTAN 25 MG TAB PO SCH (09:03)
[2018-02-13] MEDS: DOCUSATE SODIUM 50 MG/SENNA 8.6 MG TAB PO SCH (09:03)
[2018-02-13] MEDS: PANTOPRAZOLE SOD 20 MG DELAYED RELEASE TAB PO SCH (09:03)
[2018-02-13] MEDS: CALCIUM/VITAMIN D 250 MG/125 U TAB PO SCH (09:03)
[2018-02-13] MEDS: NIFEdipine 60 MG SUSTAINED RELEASE TAB PO SCH (09:05)
--- NOTE | 2018-02-13 11:40 | HHI.FF ---
Face to Face Verification Diagnosis: (1) Fractured metatarsal bone (2) HTN (hypertension), benign (3) HLD (hyperlipidemia) (4) DM (diabetes mellitus) (5) CVA (cerebral vascular accident) Physical Therapy Order: Evaluate and Treat Home Health Nursing Order: Signs/symptoms of disease process Nursing assessment with vital signs I have seen patient Princess Kraus on 02/13/18. My clinical findings support the need for the requested home health care services because: High risk of falls I certify that my clinical findings support that this patient is homebound because: Post-op weakness Unsteady gait/balance Ana Rosa Iyer February 13, 2018 11:40 Neil Romero MD February 13, 2018 13:07
--- NOTE | 2018-02-13 11:43 | HHI.DCPOC ---
Discharge Care Plan Diagnosis: (1) Fractured metatarsal bone (2) HTN (hypertension), benign (3) HLD (hyperlipidemia) (4) DM (diabetes mellitus) (5) CVA (cerebral vascular accident) (6) Hypothyroid Goals to Promote Your Health - Nonweightbearing to left lower extremity - Follow up in clinic [address] Rodriguze, call for appt. - Leave bandage as it and keep clean, dry, intact. Directions to Meet Your Goals Take your medications as prescribed Follow your dietary instruction Follow activity as directed Keep your appointments as scheduled Take your immunizations and boosters as scheduled If your symptoms worsen call your PCP, if no PCP go to Urgent Care Center or Emergency Room Smoking is Dangerous to Your Health. Avoid second hand smoke Call the 24-hour hour crisis hotline for domestic abuse at Ana Rosa Iyer February 13, 2018 11:43
--- NOTE | 2018-02-13 11:47 | HHI.PR ---
Subjective Remarks Pt underwent ORIF of left 1st metatarsal on 02/12/[address] Rodriguez Pt feeling well today and is anxious for discharge. Objective Vitals Vital Signs Date Time Temp Pulse Resp B/P (MAP) Pulse Ox O2 Delivery O2 Flow Rate FiO2 02/13/18 08:05 Room Air 02/13/18 08:00 97.9 73 18 139/64 (89) 94 02/13/18 04:00 97.4 79 18 145/64 (91) 94 02/13/18 00:01 98.1 87 18 160/70 (100) 94 02/12/18 20:00 98.4 69 17 138/63 (88) 93 02/12/18 18:45 68 16 150/67 (94) 95 Nasal Cannula 2 02/12/18 18:30 70 16 147/67 (93) 95 Nasal Cannula 2 02/12/18 18:15 74 16 145/67 (93) 95 Nasal Cannula 2 02/12/18 18:05 97.7 78 16 172/77 (108) 94 Nasal Cannula 2 02/12/18 17:30 95 Nasal Cannula 1.00 02/12/18 12:00 97.4 70 16 149/65 (93) 95 Result Diagram: 02/12/18 0700 02/12/18 0700 Other Results Laboratory Tests Test 02/11/18 12:54 02/12/18 07:00 White Blood Count 8.1 TH/MM3 7.0 TH/MM3 Red Blood Count 5.15 MIL/MM3 5.38 MIL/MM3 Hemoglobin 14.0 GM/DL 14.7 GM/DL Hematocrit 42.4 % 44.8 % Mean Corpuscular Volume 82.4 FL 83.2 FL Mean Corpuscular Hemoglobin 27.1 PG 27.3 PG Mean Corpuscular Hemoglobin Concent 32.9 % 32.8 % Red Cell Distribution Width 15.0 % 15.0 % Platelet Count 212 TH/MM3 204 TH/MM3 Mean Platelet Volume 9.0 FL 9.1 FL Neutrophils (%) (Auto) 68.3 % 62.2 % Lymphocytes (%) (Auto) 16.0 % 20.8 % Monocytes (%) (Auto) 12.0 % 11.2 % Eosinophils (%) (Auto) 3.0 % 4.8 % Basophils (%) (Auto) 0.7 % 1.0 % Neutrophils # (Auto) 5.5 TH/MM3 4.3 TH/MM3 Lymphocytes # (Auto) 1.3 TH/MM3 1.5 TH/MM3 Monocytes # (Auto) 1.0 TH/MM3 0.8 TH/MM3 Eosinophils # (Auto) 0.2 TH/MM3 0.3 TH/MM3 Basophils # (Auto) 0.1 TH/MM3 0.1 TH/MM3 CBC Comment DIFF FINAL DIFF FINAL Differential Comment Blood Urea Nitrogen 13 MG/DL 10 MG/DL Creatinine 0.70 MG/DL 0.53 MG/DL Random Glucose 130 MG/DL 109 MG/DL Calcium Level 8.6 MG/DL 8.6 MG/DL Sodium Level 142 MEQ/L 143 MEQ/L Potassium Level 3.7 MEQ/L 4.0 MEQ/L Chloride Level 108 MEQ/L 108 MEQ/L Carbon Dioxide Level 25.3 MEQ/L 25.8 MEQ/L Anion Gap 9 MEQ/L 9 MEQ/L Estimat Glomerular Filtration Rate 81 ML/MIN 112 ML/MIN Imaging Last Impressions Knee X-Ray 02/11/18 0000 Signed Impressions: CONCLUSION: Mild osteoarthritis without fracture. Foot X-Ray 02/11/18 0000 Signed Impressions: CONCLUSION: Fracture at the base of the first metatarsal. Objective Remarks General: NAD, AAOx3 Chest: CTA Cardiac: Regular Abd: +BS, soft ND/NT Ext: No edema, left foot bandages are c/d/i A/P Problem List: (1) Fractured metatarsal bone ICD Codes: S92.309A - Fracture of unspecified metatarsal bone(s), unspecified foot, initial encounter for closed fracture Plan: Fractured metatarsal bone s/p mechanical fall - X ray left foot --> Fracture at the base of the first metatarsal - Patient known to Dr. Rodriguez - Podiatry consulted - Pt underwent ORIF left 1st metatarsal on 02/12/[address] Rodriguez - Pt is to be nonweightbearing left lower extremity with crutches vs walker vs wheelchair per PT recommendations. - Follow up in clinic [address] Rodriguez - She is to leave bandage as it and keep clean, dry, intact. CVA - Continue patient's home Plavix DM - Resume home meds upon discharge HTN - Continue patient's home Nifedipine 60 mg PO BID, Losartan 25 mg PO daily Hypothyroidism - Cont. Levothyroxine 100 mcg daily Hyperlipidemia - Cont Gemfibrozil 300 mg PO daily (2) CVA (cerebral vascular accident) ICD Codes: I63.9 - CVA (cerebral vascular accident) Status: Acute (3) DM (diabetes mellitus) ICD Codes: E11.9 - DM (diabetes mellitus) Status: Acute (4) HTN (hypertension), benign ICD Codes: I10 - HTN (hypertension), benign Status: Acute (5) HLD (hyperlipidemia) ICD Codes: E78.5 - HLD (hyperlipidemia) Status: Acute Assessment and Plan Patient examined. Assessment and plan formulated with Ana Rosa Iyer PA-C. I agree with the above. dc home with podiatry f/u. Ana Rosa Iyer February 13, 2018 11:47 Neil Romero MD February 13, 2018 13:07
[2018-02-13] MEDS ORDERED: WHEEMIS3 (12:15)
--- NOTE | 2018-02-18 14:37 | MP ---
cc: Tono Rodriguez DPM DATE OF OPERATION: 02/12/2018 DATE OF SURGERY: 02/12/2019. INDICATIONS: This patient presented to the emergency department after a fall where she sustained a fracture to the first metatarsal at the base near the first metatarsocuneiform joint; it was noted to be displaced. Podiatry was consulted. I discussed with the patient risks, benefits, and potential complications of surgical versus nonsurgical treatment. She agreed to undergo open reduction with internal fixation of left first metatarsal fracture. She was seen in preop holding by myself, nursing staff and Anesthesia where the correct patient, side, site were all confirmed to be correct on the left foot. OPERATIVE PROCEDURE: She was then taken to the surgical suite in supine position. The left foot was prepped and draped in normal sterile fashion. Following timeout as per facility protocol, attention was directed to the dorsal and medial aspect of the first metatarsal base using C-arm for confirmation of location. An incision was made over the first metatarsal base area where there was noted to be a dorsal to plantar medial wedge split at the first metatarsal cuneiform joint, which was intraarticular and displaced. This fracture was located, reduced and fixated using a small locking plate and screw fixation from [employer]. C-arm was utilized to confirm reduction and adequate fixation. Following this, the wound was irrigated, followed by closure with 3-0 Vicryl and 2-0 nylon, followed by dressing consisting of Xeroform, 4 x 4s, ABD, cast padding, posterior splint and Sahil bandage to the left lower extremity. She will be nonweightbearing on the left lower extremity with crutches versus walker per physical therapy recommendations and will follow up in the clinic in a week for a dressing change. SHORT OPERATIVE NOTE SURGEON: Tono Rodriguez DPM HONING MACHINE OPERATOR: Staff. PREOPERATIVE DIAGNOSIS: Left first metatarsal fracture. POSTOPERATIVE DIAGNOSIS: Left first metatarsal fracture. PROCEDURE PERFORMED: Open reduction with internal fixation, left first metatarsal fracture. PROPHYLAXIS: Two grams Ancef IV preop. PATHOLOGY: None. ANESTHESIA: General endotracheal anesthesia plus local consisting of 10 mL of 0.5% Marcaine plain. ESTIMATED BLOOD LOSS: Minimal. COMPLICATIONS: None. TOURNIQUET TIME: Left calf at 250 mmHg. CONDITION: Stable to PACU. DISPOSITION: Nonweightbearing on the left lower extremity. Followup in clinic in 1 week for a dressing change. BERNADETTE Quiroz/PIPER , 02:01 PM , 02:36 PM
== END 2018-02-13 20:36 | disposition home health service (06) | DRG 505 ==
LOC: NEPC 07:54 → NEDA 12:52 → INTOOBSV 12:52 → N06B 15:08 → OBSVTOIN 02-13 11:45
PROVIDERS: ADMIT Hospitalist; ATTEND Hospitalist
PROC: 0QSP04Z Reposition Left Metatarsal with Internal Fixation Device, Open Approach (ICD-10-PCS; principal; 2018-02-12 16:10)
DX: S92.312A Displaced fracture of first metatarsal bone, left foot, initial encounter for closed fracture (principal); E11.9 Type 2 diabetes mellitus without complications; I10 Essential (primary) hypertension; Z79.84 Long term (current) use of oral hypoglycemic drugs; W01.0XXA Fall on same level from slipping, tripping and stumbling without subsequent striking against object, initial encounter; Y92.008 Other place in unspecified non-institutional (private) residence as the place of occurrence of the external cause; M19.90 Unspecified osteoarthritis, unspecified site; M81.0 Age-related osteoporosis without current pathological fracture; E78.5 Hyperlipidemia, unspecified; M54.9 Dorsalgia, unspecified; G89.29 Other chronic pain; K21.9 Gastro-esophageal reflux disease without esophagitis; H18.51 Endothelial corneal dystrophy; Z86.73 Personal history of transient ischemic attack (TIA), and cerebral infarction without residual deficits; Z79.02 Long term (current) use of antithrombotics/antiplatelets; E89.0 Postprocedural hypothyroidism; Z85.828 Personal history of other malignant neoplasm of skin; Z85.3 Personal history of malignant neoplasm of breast; Z85.850 Personal history of malignant neoplasm of thyroid; Z87.891 Personal history of nicotine dependence
CPT/HCPCS: 73564; 73620; 73630; 76000; 80048; 82948; 85025; 93005; 96360; 96361; C1713; G0378; J0131; J0690; J1100; J2405; J3010; J7030; J7120